=== PATIENT | female | born 1965 | race Caucasian/White ===

== ENCOUNTER 2017-02-27 05:50 | Day surgery (SDC) | payer OTHER ==
[~2017-02-27] VITALS: Ht 160 cm; Wt 74.4 kg
[2017-02-27 06:24] VITALS: BP 139/70
[2017-02-27 10:14] VITALS: BP 121/68
== END 2017-02-27 10:00 | disposition home or self-care (01) ==
LOC: GI 05:50 → OR 07:30 → GI 10:00
PROVIDERS: Internal Medicine Gastroenterology
PROC: 0DJD8ZZ Inspection of Lower Intestinal Tract, Via Natural or Artificial Opening Endoscopic (ICD-10-PCS; principal; 2017-02-27 07:30)
DX: Z12.11 Encounter for screening for malignant neoplasm of colon (principal); K64.8 Other hemorrhoids
CPT/HCPCS: 45378; J1200; J1610; J2250; J2310; J3010; J3490